=== PATIENT | male | born 1950 | race Two or more races ===

== ENCOUNTER 2018-10-26 23:42 | Emergency (ER) | payer OTHER ==
--- NOTE | 2018-10-27 00:32 | EDPHY ---
H & P Time Seen by Provider: 10/26/18 23:50 HPI/ROS: This patient presents with 2 complaints the november complaint is head injury 3 days prior to arrival. He explains that he bent down abruptly and struck his head on the edge of a cabinet and stumbled back several feet. He denies loss of consciousness denies change in consciousness but reports that felt like it was the significant "blow". Since that time he has had intermittent left frontal headache described as 5/10 intensity. He also complains of feeling "wobbly on his feet". Patient's history is notable for taking Xarelto 10 mg a day and he reports compliance with this. His 2nd complaint is right lower extremity swelling. He explains that he had a significant clot burden in the right iliac and femoral vein in July and was started on Xarelto 10 mg twice daily for month and then down to 10 mg a day. Over the past 2 days he has been installing a vanity in the bathroom on his hands and knees much of that time and this morning awakened with the new swelling to his lower extremity. He denies any pain in his lower extremity. However given the swelling is concerned that he might have recurrence of DVT. He called the [place] nurse regarding these complaints and was instructed to come the emergency department for further evaluation. He is accompanied by his . At the moment he reports this headache is minimal retrobulbar location on the left. Constitutional: No complaints HEENT: He has super orbital tenderness extends to the left frontal cranial region he reports. He denies any other HEENT complaints. Musculoskeletal: He reports left lateral neck pain since the head injury with no midline neck or back pain. He also has chronic knee pain left more than right which is unchanged. Pulmonary: No shortness of breath. No pleuritic pain. Cardiovascular: No chest pain heart palpitations or lightheadedness. He reports a prominence of collateral veins in his leg since the July DVT but no recent change in this. Neuro: He reports no change in his ability to perform daily tasks and does not feel confused. His confirms that his mental status seems normal. He denies any focal numbness tingling weakness. Denies any vision change since the injury. Integumentary: He notes some bruising to the area of his left frontal cranium since the head injury. 10 point review of symptoms is performed and otherwise negative with exception of pertinent positives and negatives listed in HPI and ROS Smoking Status: Never smoked Physical Exam: Physical exam: Vital signs are normal General: Patient is in no acute distress. HEENT: Is no external evidence of trauma on exam. Nose atraumatic. Ears: Clear bilaterally with no hemotympanum. Oropharynx: No dental trauma or malocclusion. No intraoral lacerations. Eyes: Pupils are equal and reactive to light. Extraocular motions are intact. Optic fundi: Clear with no papilledema or hemorrhage. Neck: Trachea is midline with no stridor. The patient has no midline neck tenderness and retains a full range of motion without increase in pain. Lungs: Clear to auscultation bilaterally Cardiac: Regular rate and rhythm no murmur gallop or rub. Patient has moderate edema to the right lower extremity with no posterior calf tenderness. Homans is negative. Pulses are intact. Abdomen: Soft nontender no organomegaly Back: Nontender Extremities: Atraumatic Neuro: GCS of 15. Cranial nerves II through XII intact. Cerebellar exam is normal as judged by symmetric rapid hand movements bilaterally while his left hand was less coordinated with finger to nose movements he felt this was about baseline for him given his right hand dominance. No pronator drift. No sensory or motor deficits are appreciated. Initial differential diagnosis: Minor head injury, subdural hemorrhage or other intracranial hemorrhage, dependent edema attributable to time on hands knees doing physical labor with significant clot burden from prior DVT, recurrent DVT, neck strain Constitutional: Initial Vital Signs Temperature (C) 36.7 C 10/26/18 23:49 Heart Rate 90 10/26/18 23:49 Respiratory Rate 16 10/26/18 23:49 Blood Pressure 135/85 H 10/26/18 23:49 O2 Sat (%) 94 10/26/18 23:49 O2 Delivery Mode Room Air Allergies/Adverse Reactions: No Known Allergies Allergy (Verified 10/26/18 23:49) Home Medications: Medication Instructions Recorded Tamsulosin HCl 10/26/18 Xarelto 10/26/18 MDM/Departure - MDM Diagnostics: CT head without contrast: Appreciate no evidence of intracranial hemorrhage. Imaging: I viewed and interpreted images myself ED Course/Re-evaluation: Discussion: Patient with minor head injury but intermittent headaches and a sense of imbalance/dizziness on Xarelto warranting CT imaging to rule out subdural. Clinically his lower extremity edema is most consistent with dependent edema given his history and physical findings and compliance with his Xarelto. We'll check a D-dimer given these considerations. I Explained that if his D-dimer is positive we would call the rehab tech in to pursue ultrasound imaging of his lower extremity. Patient's D-dimer is normal. His CBC is normal. Appreciate no evidence of intracranial bleed on his CT head. I counseled regarding these findings and counseled regarding dependent edema suggesting leg elevation and compression stockings. Patient will follow up with his primary care physician and continue his Xarelto. He understands need to return emergency department should he have any significant worsening of symptoms despite treatment plan. - Depart Disposition: Home, Routine, Self-Care Clinical Impression: Dependent edema Minor head injury without loss of consciousness Qualifiers: Encounter type: initial encounter Qualified Code(s): S09.90XA - Unspecified injury of head, initial encounter Neck muscle strain Qualifiers: Encounter type: initial encounter Qualified Code(s): S16.1XXA - Strain of muscle, fascia and tendon at neck level, initial encounter Condition: Good Instructions: Head Injury (ED), Leg Edema (ED) Additional Instructions: Diagnosis: 1. Minor head injury 2. Dependent edema 3. Neck strain Plan: Tylenol for neck discomfort and headaches Elevate her leg higher than your heart for swelling. Try compression stockings in addition and avoid working on your hands and knees whenever possible. Follow-up with primary care physician Return emergency department for any significant worsening despite the treatment plan
[2018-10-27 01:32] VITALS: BP 132/81
== END 2018-10-27 01:26 | disposition home or self-care (01) ==
LOC: CED 23:42
DX: S09.90XA Unspecified injury of head, initial encounter (principal); S16.1XXA Strain of muscle, fascia and tendon at neck level, initial encounter; R06.9 Unspecified abnormalities of breathing; W22.8XXA Striking against or struck by other objects, initial encounter; Z79.01 Long term (current) use of anticoagulants
CPT/HCPCS: 70450-PO; 85025-QW-ER; 85379-QW-ER; 99284-ER